=== PATIENT | male | born 1965 ===

== ENCOUNTER 2021-02-09 09:00 | Outpatient (CLI) | payer OTHER | END 2021-02-09 09:05 | disposition home or self-care (01) | LOC: PPH VACUNA 09:00 | DX: Z23 Encounter for immunization (principal) ==

== ENCOUNTER 2021-09-09 08:00 | Outpatient (CLI) | payer OTHER | END 2021-09-09 08:30 | disposition home or self-care (01) | LOC: PPH VACUNA 08:00 | PROVIDERS: ATTEND Emergency Medicine Pediatric Emergency Medicine | DX: Z23 Encounter for immunization (principal) ==

== ENCOUNTER 2022-02-24 12:00 | Outpatient (CLI) | payer OTHER | END 2022-02-24 12:20 | disposition home or self-care (01) | LOC: PPH VACUNA 12:00 | PROVIDERS: ATTEND Emergency Medicine Pediatric Emergency Medicine | DX: Z23 Encounter for immunization (principal) ==